=== PATIENT | female | born 1990 | race Two or more races ===

== ENCOUNTER 2023-11-29 17:16 | Emergency (ER) | payer MEDICAID ==
[~2023-11-29] VITALS: Ht 175.3 cm; Wt 130.3 kg
[2023-11-29] MEDS: KETOROLAC TROMETH 60MG/2ML VIAL IM ONE (18:32)
[2023-11-29 19:18] LABS: Chloride 103 mmol/L (98-107); Potassium 4.3 mmol/L (3.5-5.1); Sodium 135 mmol/L (136-145)
[2023-11-29 19:19] LABS: Anion Gap 8 (5-15); Carbon Dioxide 24 mmol/L (20-30)
[2023-11-29 19:20] LABS: Calcium 10.2 mg/dL (8.5-10.1)
[2023-11-29 19:24] LABS: BUN/Creatinine Ratio 9.9 (10.0-20.0); Blood Urea Nitrogen 9 mg/dL (9-23); Glucose 115 mg/dL (74-106)
[2023-11-29 19:26] LABS: Creatine Kinase IFCC 29 U/L (34-145)
[2023-11-29] MEDS: IOHEXOL 350 MG/ML 100ML IJ ONE ×2 (19:44→21:21)
[2023-11-29 22:15] VITALS: BP 139/85; PULSE 89; RESP 20; TEMP 98; O2SAT 98
== END 2023-11-29 22:15 | disposition home or self-care (01) ==
LOC: ER 17:16
DX: S92.811A Other fracture of right foot, initial encounter for closed fracture (principal); M79.604 Pain in right leg; X58.XXXA Exposure to other specified factors, initial encounter; Y93.89 Activity, other specified; Y92.89 Other specified places as the place of occurrence of the external cause; Y99.8 Other external cause status
CPT/HCPCS: 36415; 73706; 80048; 82550; 93971; 96372; 99285; J1885; Q9967